=== PATIENT | male | born 1940 | race Caucasian/White ===

== ENCOUNTER 2019-09-15 13:06 | Inpatient (IN) | payer MEDICARE, MEDICAID ==
[2019-09-15 22:23] VITALS: BP 165/64
[2019-09-15] MEDS ORDERED: Maalox 30 mL Cup PO PRN (22:28)
[2019-09-15] MEDS ORDERED: Magnesium Hydroxide (MOM) 30 mL UDC PO PRN (22:28)
[2019-09-16] MEDS ORDERED: Acetaminophen 500 MG TAB PO PRN (00:19)
[2019-09-16] MEDS ORDERED: Fleet Enema 135 mL RC PRN (00:26)
--- NOTE | 2019-09-16 09:02 | Psychiatric Evaluation ---
DATE OF SERVICE: 09/15/2019 PSYCHIATRIC INITIAL EVALUATION AND MENTAL STATUS EXAM AGE: 78. SEX: Male. PHYSICIAN: Dr. Cool. CHIEF COMPLAINT: Agitation and verbal and aggressive behavior. HISTORY OF PRESENT ILLNESS: The patient is a 78-year-old male, who was admitted to the hospital from [facility] because of verbal and physical aggression toward the staff. According to the admission report, patient has been aggressive with the staff in the facility and was not able to follow any directions. Also, patient was throwing stuff towards other residents and staff. Chart reviewed and patient interviewed and discussed patient's condition with the staff. The patient currently seems to be unable to answer most of the questions currently. According to admission report and from the , patient at certain time was homeless and he was having difficulty with having living situation that is appropriate, but lately has been in [facility]. Also, according to patient's , patient has been aggressive. He has a diagnosis of psychosis and patient was throwing objects at staff and others in the facility. PAST PSYCHIATRIC HISTORY: History of psychosis. The patient is currently taking Aricept as well as Seroquel 25 mg at bedtime. PAST MEDICAL HISTORY: The patient has history of diabetes mellitus type 2, hypertension, benign prostatic hypertrophy, glaucoma, and hyperlipidemia. SOCIAL HISTORY: The patient is , but from and living in a residential "[facility]." He denies alcohol or drug use. The patient also said that he has adult children, but was not able to tell me how much. ALLERGIES: No known allergies. MENTAL STATUS EXAMINATION: The patient appears his stated age. Slightly sedated. Tried to answer questions, but at the same time because patient seems to be preoccupied and slightly sedated, he was not able to answer any of my questions correctly. The patient seems to be preoccupied and responding. He denies auditory or visual hallucinations, but seems to be paranoid. He denies suicide or homicide. The patient is alert and oriented to situation, but not to place or person. Impaired immediate, recent memory, but he was able to tell me his date. Poor insight and judgment. ASSESSMENT: PRIMARY DIAGNOSIS: Unspecified psychosis. Rule out schizophrenic disorder. SECONDARY DIAGNOSIS: Dementia, moderate, with psychotic features and behavioral disturbances. MEDICAL DIAGNOSES: 1. Hyperlipidemia. 2. Benign prostatic hypertrophy. 3. Hypertension. 4. Type 2 diabetes mellitus. TREATMENT PLAN: We will currently continue Aricept and we will continue Seroquel and we will adjust the dose. Also, we will work on behavioral modification and we will try also to get more information regarding patient's condition. ESTIMATED LENGTH OF STAY: 5-7 days. PATIENT'S STRENGTHS AND WEAKNESSES: The patient's strength is not clear at this time. Weaknesses is his poor impulse control and his irritability and agitation. AFTER DISCHARGE PLAN: The patient will return to [facility] and with plans for outpatient treatment there. CRITERIA FOR DISCHARGE: Better impulse control. Also, stabilizing psychotropic medications. JOB# [id number]
[2019-09-16] MEDS: Aspirin 81mg Chewable Tab PO SCH (09:55)
--- NOTE | 2019-09-16 12:57 | History and Physical ---
History of Present Illness - HPI Chief Complaint: Patient was brought to [facility] for evaluation due to verbal and physical aggression. HPI: Patient was brought to [facility] from [facility] for evaluation due to verbal and physical aggression. Patient has history of Psychosis, Dementia, Hypertension, BPH, Diabetes, Hyperlipidemia and Glaucoma. Patient had an ER assessment and a complete workup was done. Patient had a Psych evaluation and was diagnosed with Psychosis, Rule out Schizophrenic disorder, Dementia, Hyperlipidemia, BPH, Diabetes and Hypertension. I will follow, treat and monitor patient. Patient will continue current treatment plan as ordered. Vital Signs: Last Vital Signs Temp 98.0 F 09/16/19 06:54 Pulse 56 09/16/19 09:50 Resp 19 09/16/19 06:54 BP 113/52 09/16/19 09:50 Pulse Ox 98 09/16/19 06:54 Past Medical History Cardiovascular: Report: HTN Pulmonary: Report: No Pertinent Hx [employer]ICE: Report: Dementia GI: Report: No Pertinent Hx Psych: Report: Psychosis Musculoskeletal: Report: No Pertinent Hx Rheumatologic: Report: No pertinent Hx Infectious Disease: Report: No Pertinent Hx Renal/: Report: No Pertinent Hx Endocrine: Report: Diabetes Dermatology: Report: No Pertinent Hx Family Medical History - Family Member Mother History Unknown: Yes Social History Smoke: No Alcohol: None Drugs: None Lives: [facility] Domestic Violence: Negative Health Maintenance Health Maintenance: Other (Please see chart.) - Medications Home Medications: Home Medication Medication Instructions Recorded Type Acetaminophen [Tylenol Extra 1,000 mg PO Q8H PRN 09/15/19 History Strength] Aspirin [Aspirin Chewable] 81 mg PO DAILY 09/15/19 History Atorvastatin Calcium [Lipitor] 20 mg PO HS 09/15/19 History Bisacodyl [Dulcolax 10 Mg Supp] 10 mg RC DAILY PRN 09/15/19 History Brimonidine 0.2% Ophth Soln 1 drop EACH EYE BID 09/15/19 History [Alphagan 0.2% Ophth Soln] Cholecalciferol (Vit D3) [Vitamin 5,000 iu PO DAILY 09/15/19 History D3] Donepezil HCl [Aricept] 10 mg PO HS 09/15/19 History Dorzolamide HCl/Timolol Maleat 1 drop OP BID 09/15/19 History [Cosopt Eye Drops] Doxazosin Mesylate 2 mg PO DAILY 09/15/19 History Fleet Enema 133 ml RC PRN 09/15/19 History Fleet Enema 133 ml RC PRN 09/15/19 History Glimepiride 1 mg PO DAILY 09/15/19 History Lisinopril [Zestril] 5 mg PO DAILY 09/15/19 History Memantine HCl [Namenda Xr] 28 mg PO HS 09/15/19 History Metformin HCl 1,000 mg PO BID 09/15/19 History Pioglitazone HCl [Actos] 15 mg PO DAILY 09/15/19 History Tamsulosin HCl [Flomax] 0.4 mg PO HS 09/15/19 History Acetaminophen [Tylenol] 650 mg PO Q4H PRN 09/16/19 History Other Medications: Please see Medication reconciliation sheet. - Allergies Allergies/Adverse Reactions: Allergies Allergy/AdvReac Type Severity Reaction Status Date / Time No Known Allergies Allergy Verified 09/15/19 22:23 Review of Systems - Review of Systems Review of Systems: Patient was admitted due to Physical and verbal aggression, needs close monitoring. Constitutional: Report: No Significant Eyes: Report: No Significant ENT: Report: No Significant Respiratory: Report: No Significant Cardiovascular: Report: No Significant Gastrointestinal: Report: No Significant Genitourinary: Report: No Significant Musculoskeletal: Report: No Significant Skin: Report: No Significant Neurological: Report: Weakness, Confusion Physical Exam - Physical Exam HEENT: Report: Ears Nose Throat within normal limits Neck: Report: Within normal limits Cardiovascular Systems: Report: +s1/s2 noted, Regular, Rate and Rhythm Respiratory: Report: Breath Sounds are within normal limits Abdomen: Report: Non-tender to palpation Back: Report: Inspection of back is within normal limits. Extremities: Report: Non-tender to palpation. Skin: Report: Color of skin is within normal limits Neuro/Psych: Report: Other (Patient is very aggitated and aggressive.) - Lab Results All Lab Results last 24 hours: Please see labs. - Assessment Assessment: Psychosis. Rule out Schizophrenic disorder. Dementia. Hyperlipidemia. BPH. Diabetes. Hypertension. - Plan Plan: Continuation of care. Monitor Labs. Continue present meds as directed. Monitor vitals continue B/P meds as directed. Accu-check daily, Continue DM meds as directed. Monitor Diet/Nutritional support. Pain Management. Psych management as per Psych. Safety precaution. Supportive care. Fall precaution, frequent nursing rounds, and as needed restraints to prevent fall. Continue collaborating with consulting specialists, case management and nursing team. Will Monitor patient and continue current treatment plan as ordered.
[2019-09-16] MEDS: Atorvastatin Calcium 10 MG TAB PO SCH (20:47)
[2019-09-16] MEDS ORDERED: MEMANTINE HCL 28 MG PO SCH (21:00)
[2019-09-17] MEDS: Aspirin 81mg Chewable Tab PO SCH (09:34)
--- NOTE | 2019-09-17 12:00 | Internal Medicine Prog Note ---
Internal Medicine Subjective - Subjective Service Date: 09/17/19 Patient seen and examined:: with staff, chart reviewed Patient is:: awake, agitated, confused Patient Complaints of:: other (Hx of diabetes.) Per staff patient has:: no adverse event, no episodes of fall Internal Medicine Objective - Physical Exam Vitals and I&O: Vital Signs Temp 98.4 F 09/17/19 06:05 Pulse 80 09/17/19 09:35 Resp 20 09/17/19 06:05 BP 118/62 09/17/19 09:35 Pulse Ox 99 09/17/19 06:05 Intake & Output 09/16/19 09/17/19 09/17/19 18:59 06:59 18:59 Intake Total 960 240 Balance 960 240 Intake: Oral 960 240 Other: # Voids 4 2 # Bowel Movements 0 1 Active Medications: Current Medications Acetaminophen (Tylenol) 650 mg PO Q4H PRN PRN Reason: Pain (Mild 1-3) Stop: 11/14/19 22:27 Acetaminophen (Tylenol) 650 mg PO Q4H PRN PRN Reason: Temperature above 101 Stop: 11/15/19 00:18 Acetaminophen (Tylenol Extra Strength) 1,000 mg PO Q8H PRN PRN Reason: MODERATE PAIN (4-6) Stop: 11/15/19 00:18 Al Hydrox/Mg Hydrox/Simethicone (Maalox) 30 ml PO Q4HR PRN PRN Reason: GI DISTRESS Stop: 11/14/19 22:27 Aspirin (Aspirin Chewable) 81 mg PO DAILY [facility] Stop: 11/15/19 08:59 Last Admin: 09/17/19 09:34 Dose: 81 mg Atorvastatin Calcium (Lipitor) 20 mg PO HS [facility] Stop: 11/15/19 20:59 Last Admin: 09/16/19 20:47 Dose: Not Given Bisacodyl (Dulcolax 10 Mg Supp) 10 mg RC DAILY PRN PRN Reason: no bm for 3 days if mom ineffe Stop: 11/15/19 00:18 Brimonidine Tartrate (Alphagan 0.2% Ophth Soln) 1 drop EACH EYE BID [facility] Stop: 11/15/19 08:59 Last Admin: 09/17/19 09:50 Dose: Not Given Cholecalciferol (Vitamin D3) 5,000 iu PO DAILY [facility] Stop: 11/15/19 08:59 Last Admin: 09/17/19 09:34 Dose: 5,000 iu Donepezil HCl (Aricept) 10 mg PO HS [facility] Stop: 11/15/19 20:59 Last Admin: 09/16/19 20:47 Dose: Not Given Dorzolamide/Timolol (Cosopt Ophth Soln) 1 drop EACH EYE BID [facility] Stop: 11/15/19 08:59 Last Admin: 09/17/19 09:50 Dose: Not Given Doxazosin Mesylate (Cardura) 2 mg PO DAILY [facility] Stop: 11/15/19 08:59 Last Admin: 09/17/19 09:34 Dose: 2 mg Glimepiride (Amaryl) 1 mg PO DAILY [facility] Stop: 11/15/19 08:59 Last Admin: 09/17/19 09:36 Dose: 1 mg Lisinopril (Zestril) 5 mg PO DAILY [facility] Stop: 11/15/19 08:59 Last Admin: 09/17/19 09:35 Dose: 5 mg Lorazepam (Ativan) 0.5 mg PO Q4HR PRN; Protocol PRN Reason: Anxiety Stop: 10/15/19 22:27 Magnesium Hydroxide (Milk Of Magnesia) 30 ml PO HS PRN PRN Reason: Constipation Memantine (Namenda) 5 mg PO BID [facility] Stop: 11/15/19 16:59 Last Admin: 09/17/19 09:36 Dose: 5 mg Metformin HCl (Glucophage) 1,000 mg PO BID [facility] Stop: 11/15/19 08:59 Last Admin: 09/17/19 09:34 Dose: 1,000 mg Pioglitazone HCl (Actos) 15 mg PO DAILY [facility] Stop: 11/15/19 08:59 Last Admin: 09/17/19 09:35 Dose: 15 mg Quetiapine Fumarate (Seroquel) 25 mg PO BID [facility]; Protocol Stop: 11/15/19 08:59 Last Admin: 09/17/19 09:35 Dose: 25 mg Sodium Phosphate (Fleet Enema) 133 ml RC PRN PRN PRN Reason: no bm 3 days dulcolax ineffect Stop: 11/15/19 00:25 Tamsulosin HCl (Flomax) 0.4 mg PO HS [facility] Stop: 11/15/19 20:59 Last Admin: 09/16/19 20:47 Dose: Not Given Zolpidem Tartrate (Ambien) 5 mg PO HS PRN PRN Reason: Insomnia Stop: 11/14/19 22:27 Physical Exam: Patent needs to be monitored closely, patient is easily agitated and very irritable. General: demented HEENT: NC/AT, PERRLA Neck: Supple, No JVD Lungs: CTAB Cardiovascular: RRR, Normal S1, Normal S2 Abdomen: soft, non-tender Extremities: clear Neurological: disorganized Internal Medicine Assmt/Plan - Assessment Assessment: Psychosis. Rule out Schizophrenic disorder. Dementia. Hyperlipidemia. BPH. Diabetes. Hypertension. - Plan Plan: Continuation of care. Monitor Labs. Continue present meds as directed. Monitor vitals continue B/P meds as directed. Accu-check daily, Continue DM meds as directed. Monitor Diet/Nutritional support. Pain Management. Psych management as per Psych. Safety precaution. Supportive care. Fall precaution, frequent nursing rounds, and as needed restraints to prevent fall. Continue collaborating with consulting specialists, case management and nursing team. Will Monitor patient and continue current treatment plan as ordered. Nutritional Asmnt/Malnutr-PDOC - Dietary Evaluation Malnutrition Findings (Please click <Entered> for more info): please see orders.
[2019-09-17] MEDS: Atorvastatin Calcium 10 MG TAB PO SCH (20:16)
--- NOTE | 2019-09-17 21:06 | Progress Notes ---
DATE: SUBJECTIVE: Chart was reviewed and the patient interviewed. Also discussed the patient's condition with the staff and reviewed records and labs. The patient is still easily agitated and is still in irritable and angry mood. The patient also wants to stay by himself most of the time. He also is still talking to himself and easily irritable and easily agitated. Also, the patient is uncooperative and refused to take his medications. ASSESSMENT: The patient is still agitated and is still psychotic. TREATMENT PLAN: Continue to monitor his behavior closely. Also, continue to work on his compliance with taking his medications. Also, working on his ineffective coping and poor impulse control. JOB# [id number]
[2019-09-18] MEDS: Aspirin 81mg Chewable Tab PO SCH (09:09)
--- NOTE | 2019-09-18 12:45 | Progress Notes ---
DATE: 09/18/2019 SUBJECTIVE: The patient was seen in his room. The patient appears to be withdrawn, poor impulse control, easily gets agitated and frustrated, did need some redirection. Otherwise, the patient appears to be in no acute distress. OBJECTIVE: VITAL SIGNS: Temperature 97, heart rate 61, blood pressure 115/62, respirations 20, and 99% on room air. HEENT: Head is atraumatic and normocephalic. Eyes: Bilateral conjunctivae are clear. Bilateral pupils equal, round, reactive. NECK: Supple. No JVD. CARDIOVASCULAR: S1 and S2, without murmur. PULMONARY: Clear to auscultation. GASTROINTESTINAL: Soft and nontender without guarding. Positive bowel sounds. MUSCULOSKELETAL: No clubbing. No cyanosis noted. ASSESSMENT: 1. Psychosis. 2. Hyperlipidemia. 3. Hypertension. 4. Benign prostatic hypertrophy. 5. Diabetes. PLAN: We will continue to keep the patient to inpatient Psychiatric Unit. We will follow up with a psychiatrist to monitor the patient's condition and behavior. We will continue to monitor the patient's condition and behavior. Treatment plans were discussed with the patient's nurse. Treatment plans were discussed with Dr. Márquez. JOB# [id number]
--- NOTE | 2019-09-18 18:22 | Progress Notes ---
DATE: 09/18/2019 SUBJECTIVE: The patient was seen and evaluated. The patient's chart reviewed. Covering for Dr. Cool. IDENTIFYING DATA: A 78-year-old male brought in [facility]. Physical and verbal aggression towards staff. Reconciliation reviewed, Aricept 10, Namenda, and Seroquel. Today on [id number] evaluation, easily irritable upon approach, anxious, minimally interactive, has been isolating, withdrawn, at times talking to himself upon the approach, at times refusing medications and does not know why he is here. ASSESSMENT AND PLAN: Continue with significant coping skills, poor impulse control. Alert and responding. We will continue with the recent augmentation of Seroquel. JOB# [id number]
[2019-09-18] MEDS: Atorvastatin Calcium 10 MG TAB PO SCH (20:58)
[2019-09-19] MEDS: Aspirin 81mg Chewable Tab PO SCH (09:09)
--- NOTE | 2019-09-19 09:45 | Progress Notes ---
DATE: 09/19/[address] Cool. SUBJECTIVE: Today on [id number] evaluation, distraught, anxious in his room, in redirection, at times refusing medications. MENTAL STATUS EXAMINATION: Isolative, withdrawn, disengaged, poor insight. ASSESSMENT AND PLAN: Major depressive disorder with poor coping skills and impulsive. We will continue monitoring and evaluating as medication continue to reach steady state. [facility]# [id number]
--- NOTE | 2019-09-19 13:49 | Internal Medicine Prog Note ---
Internal Medicine Subjective - Subjective Patient is:: awake, verbal, agitated, confused Patient Complaints of:: other (Hx of diabetes.) Per staff patient has:: no adverse event, no episodes of fall Internal Medicine Objective - Physical Exam Vitals and I&O: Vital Signs Temp 98.4 F 09/19/19 06:03 Pulse 57 09/19/19 09:09 Resp 19 09/19/19 08:00 BP 143/68 09/19/19 09:09 Pulse Ox 97 09/19/19 06:03 Intake & Output 09/18/19 09/19/19 09/19/19 17:59 06:59 18:59 Intake Total Balance Intake: Oral Other: # Voids # Bowel Movements Active Medications: Current Medications Acetaminophen (Tylenol) 650 mg PO Q4H PRN PRN Reason: Pain (Mild 1-3) Stop: 11/14/19 22:27 Acetaminophen (Tylenol) 650 mg PO Q4H PRN PRN Reason: Temperature above 101 Stop: 11/15/19 00:18 Acetaminophen (Tylenol Extra Strength) 1,000 mg PO Q8H PRN PRN Reason: MODERATE PAIN (4-6) Stop: 11/15/19 00:18 Al Hydrox/Mg Hydrox/Simethicone (Maalox) 30 ml PO Q4HR PRN PRN Reason: GI DISTRESS Stop: 11/14/19 22:27 Aspirin (Aspirin Chewable) 81 mg PO DAILY [facility] Stop: 11/15/19 08:59 Last Admin: 09/19/19 09:09 Dose: 81 mg Atorvastatin Calcium (Lipitor) 20 mg PO HS [facility] Stop: 11/15/19 20:59 Last Admin: 09/18/19 20:58 Dose: Not Given Bisacodyl (Dulcolax 10 Mg Supp) 10 mg RC DAILY PRN PRN Reason: no bm for 3 days if mom ineffe Stop: 11/15/19 00:18 Brimonidine Tartrate (Alphagan 0.2% Oph Soln) 1 drop EACH EYE BID [facility] Stop: 11/15/19 08:59 Last Admin: 09/19/19 09:08 Dose: 1 drop Cholecalciferol (Vitamin D3) 5,000 iu PO DAILY [facility] Stop: 11/15/19 08:59 Last Admin: 09/19/19 09:08 Dose: 5,000 iu Donepezil HCl (Aricept) 10 mg PO HS [facility] Stop: 11/15/19 20:59 Last Admin: 09/18/19 20:58 Dose: Not Given Dorzolamide/Timolol (Cosopt Ophth Soln) 1 drop EACH EYE BID [facility] Stop: 11/15/19 08:59 Last Admin: 09/19/19 09:08 Dose: 1 drop Doxazosin Mesylate (Cardura) 2 mg PO DAILY [facility] Stop: 11/15/19 08:59 Last Admin: 09/19/19 09:08 Dose: 2 mg Glimepiride (Amaryl) 1 mg PO DAILY [facility] Stop: 11/15/19 08:59 Last Admin: 09/19/19 09:10 Dose: 1 mg Lisinopril (Zestril) 5 mg PO DAILY [facility] Stop: 11/15/19 08:59 Last Admin: 09/19/19 09:09 Dose: 5 mg Lorazepam (Ativan) 0.5 mg PO Q4HR PRN; Protocol PRN Reason: Anxiety Stop: 10/15/19 22:27 Magnesium Hydroxide (Milk Of Magnesia) 30 ml PO HS PRN PRN Reason: Constipation Memantine (Namenda) 5 mg PO BID [facility] Stop: 11/15/19 16:59 Last Admin: 09/19/19 09:43 Dose: 5 mg Metformin HCl (Glucophage) 1,000 mg PO BID [facility] Stop: 11/15/19 08:59 Last Admin: 09/19/19 09:09 Dose: 1,000 mg Pioglitazone HCl (Actos) 15 mg PO DAILY [facility] Stop: 11/15/19 08:59 Last Admin: 09/19/19 09:08 Dose: 15 mg Quetiapine Fumarate (Seroquel) 25 mg PO BID [facility]; Protocol Stop: 11/15/19 08:59 Last Admin: 09/19/19 09:09 Dose: 25 mg Sodium Phosphate (Fleet Enema) 133 ml RC PRN PRN PRN Reason: no bm 3 days dulcolax ineffect Stop: 11/15/19 00:25 Tamsulosin HCl (Flomax) 0.4 mg PO HS [facility] Stop: 11/15/19 20:59 Last Admin: 09/18/19 20:58 Dose: Not Given Zolpidem Tartrate (Ambien) 5 mg PO HS PRN PRN Reason: Insomnia Stop: 11/14/19 22:27 General: demented, NAD, other (does not answer questions appropriately) HEENT: NC/AT, PERRLA Neck: Supple, No JVD Lungs: CTAB Cardiovascular: RRR, Normal S1, Normal S2 Abdomen: soft, non-tender Extremities: clear Neurological: disorganized Internal Medicine Assmt/Plan - Assessment Assessment: Psychosis Hyperlipidemia HTN BPH DM - Plan Plan: Continue current managements Monitor VS Monitor Labs Psych management per Psych Pain managment as needed. Monitor nutritional needs. Fall Precaution Continue collaboration with interdisciplinary team. Nutritional Asmnt/Malnutr-PDOC - Dietary Evaluation Malnutrition Findings (Please click <Entered> for more info): Nutritional Asmnt/Malnutrition Start: 09/18/19 10: 39 Text: Status: Complete Freq: Protocol: Document 09/18/19 10:39 MMPETRA (Rec: 09/18/19 10:47 MMULCAN SALINAS- [email or web address]) Nutritional Asmnt/Malnutrition Patient General Information Nutritional Screening Moderate Risk Diagnosis Psychosis Pertinent Medical Hx/Surgical Hx Psychosis, dementia, HTN, BPH, diabetes, hyperlipidemia, glaucoma. Subjective Information Patient was admitted from [facility] due to verbal and physical aggression . Tolerating current diet order with adequate intake. Current Diet Order/ Nutrition Support mechanical soft, 60gm CCHO, no added sodium Patient / S.O Not Indicated Pertinent Medications Maalox, Lipitor, Dulcolax, Vitamin D, MOM, Metformin, Fleet enema Nutritional Hx/Data Height 5 ft 2 in Height (Calculated Centimeters) 157.5 Current Weight (lbs) 176 lb Weight (Calculated Kilograms) 79.8 Weight (Calculated Grams) 51277.3 Mathews Body Weight 118 % Mathews Body Weight 149 Body Mass Index (BMI) 32.1 Recent Weight Change No Weight Status Obese GI Symptoms GI Symptoms None Last BM 3/6 x 2 Difficult in: None Food Allergies No Cultural/Ethnic/Oriental Orthodox Belief none indicated Usual diet at home unknown Skin Integrity/Comment: Dillon 18, Dryness Current %PO Good (75-100%) Estimated Nutritional Goals BEE in Kcals: Adj wt of IBW Calories/Kcals/Kg 60.2kg ADj BW 27-32 kcal/kg Kcals Calculated ~3726-0969 kcal/day Protein: Adj wt of IBW Protein g/k-1.2 gm/kg Protein Calculated ~60-70gm/day Fluid: ml ~4109-8517 ml/day (1 ml/kcal) Nutritional Problem No current Nutrition Prob Problem No nutrition diagnosis at this time Intervention/Recommendation Comments 1. Continue current diet as tolerated by patient. Expected Outcomes/Goals Expected Outcomes/Goals Adequate nutrition to meet >75 % estimated needs, improved labs, skin remains intact, weight maintenance or trend toward ideal body weight. F/U LR 09/24-
[2019-09-19] MEDS: Atorvastatin Calcium 10 MG TAB PO SCH (21:25)
[2019-09-20] MEDS: Aspirin 81mg Chewable Tab PO SCH (09:22)
--- NOTE | 2019-09-20 17:14 | Internal Medicine Prog Note ---
Internal Medicine Subjective - Subjective Service Date: 09/20/19 Patient is:: awake, verbal, agitated, confused Patient Complaints of:: other (Hx of diabetes.) Per staff patient has:: no adverse event, no episodes of fall Internal Medicine Objective - Physical Exam Vitals and I&O: Vital Signs Temp 99.6 F 09/20/19 14:00 Pulse 63 09/20/19 14:00 Resp 20 09/20/19 14:00 BP 116/63 09/20/19 14:00 Pulse Ox 97 09/20/19 14:00 Intake & Output 09/19/19 09/20/19 09/20/19 18:59 06:59 18:59 Intake Total 900 120 Balance 900 120 Intake: Oral 900 120 Other: # Voids 3 # Bowel Movements 0 Active Medications: Current Medications Acetaminophen (Tylenol) 650 mg PO Q4H PRN PRN Reason: Pain (Mild 1-3) Stop: 11/14/19 22:27 Acetaminophen (Tylenol) 650 mg PO Q4H PRN PRN Reason: Temperature above 101 Stop: 11/15/19 00:18 Acetaminophen (Tylenol Extra Strength) 1,000 mg PO Q8H PRN PRN Reason: MODERATE PAIN (4-6) Stop: 11/15/19 00:18 Al Hydrox/Mg Hydrox/Simethicone (Maalox) 30 ml PO Q4HR PRN PRN Reason: GI DISTRESS Stop: 11/14/19 22:27 Aspirin (Aspirin Chewable) 81 mg PO DAILY [facility] Stop: 11/15/19 08:59 Last Admin: 09/20/19 09:22 Dose: Not Given Atorvastatin Calcium (Lipitor) 20 mg PO HS [facility] Stop: 11/15/19 20:59 Last Admin: 09/19/19 21:25 Dose: 20 mg Bisacodyl (Dulcolax 10 Mg Supp) 10 mg RC DAILY PRN PRN Reason: no bm for 3 days if mom ineffe Stop: 11/15/19 00:18 Brimonidine Tartrate (Alphagan 0.2% Ophth Soln) 1 drop EACH EYE BID [facility] Stop: 11/15/19 08:59 Last Admin: 09/20/19 09:22 Dose: Not Given Cholecalciferol (Vitamin D3) 5,000 iu PO DAILY [facility] Stop: 11/15/19 08:59 Last Admin: 09/20/19 09:22 Dose: Not Given Donepezil HCl (Aricept) 10 mg PO HS [facility] Stop: 11/15/19 20:59 Last Admin: 09/19/19 21:25 Dose: 10 mg Dorzolamide/Timolol (Cosopt Ophth Soln) 1 drop EACH EYE BID [facility] Stop: 11/15/19 08:59 Last Admin: 09/20/19 09:22 Dose: Not Given Doxazosin Mesylate (Cardura) 2 mg PO DAILY [facility] Stop: 11/15/19 08:59 Last Admin: 09/20/19 09:23 Dose: Not Given Glimepiride (Amaryl) 1 mg PO DAILY [facility] Stop: 11/15/19 08:59 Last Admin: 09/20/19 09:23 Dose: Not Given Lisinopril (Zestril) 5 mg PO DAILY [facility] Stop: 11/15/19 08:59 Last Admin: 09/20/19 09:23 Dose: Not Given Lorazepam (Ativan) 0.5 mg PO Q4HR PRN; Protocol PRN Reason: Anxiety Stop: 10/15/19 22:27 Magnesium Hydroxide (Milk Of Magnesia) 30 ml PO HS PRN PRN Reason: Constipation Memantine (Namenda) 5 mg PO BID [facility] Stop: 11/15/19 16:59 Last Admin: 09/20/19 09:23 Dose: Not Given Metformin HCl (Glucophage) 1,000 mg PO BID [facility] Stop: 11/15/19 08:59 Last Admin: 09/20/19 09:23 Dose: Not Given Pioglitazone HCl (Actos) 15 mg PO DAILY [facility] Stop: 11/15/19 08:59 Last Admin: 09/20/19 09:23 Dose: Not Given Quetiapine Fumarate (Seroquel) 25 mg PO BID [facility]; Protocol Stop: 11/15/19 08:59 Last Admin: 09/20/19 09:23 Dose: Not Given Sodium Phosphate (Fleet Enema) 133 ml RC PRN PRN PRN Reason: no bm 3 days dulcolax ineffect Stop: 11/15/19 00:25 Tamsulosin HCl (Flomax) 0.4 mg PO HS [facility] Stop: 11/15/19 20:59 Last Admin: 03/08/20 21:25 Dose: 0.4 mg Zolpidem Tartrate (Ambien) 5 mg PO HS PRN PRN Reason: Insomnia Stop: 11/14/19 22:27 General: demented, NAD, other (does not answer questions appropriately) HEENT: NC/AT, PERRLA Neck: Supple, No JVD Lungs: CTAB Cardiovascular: RRR, Normal S1, Normal S2 Abdomen: soft, non-tender Extremities: clear Neurological: disorganized Nutritional Asmnt/Malnutr-PDOC - Dietary Evaluation Malnutrition Findings (Please click <Entered> for more info): Nutritional Asmnt/Malnutrition Start: 09/18/19 10: 39 Text: Status: Complete Freq: Protocol: Document 09/18/19 10:39 VALARIE (Rec: 09/18/19 10:47 MMPETRA NIÑO- FNS1) Nutritional Asmnt/Malnutrition Patient General Information Nutritional Screening Moderate Risk Diagnosis Psychosis Pertinent Medical Hx/Surgical Hx Psychosis, dementia, HTN, BPH, diabetes, hyperlipidemia, glaucoma. Subjective Information Patient was admitted from [facility] due to verbal and physical aggression . Tolerating current diet order with adequate intake. Current Diet Order/ Nutrition Support mechanical soft, 60gm CCHO, no added sodium Patient / S.O Not Indicated Pertinent Medications Maalox, Lipitor, Dulcolax, Vitamin D, MOM, Metformin, Fleet enema Nutritional Hx/Data Height 5 ft 2 in Height (Calculated Centimeters) 157.5 Current Weight (lbs) 176 lb Weight (Calculated Kilograms) 79.8 Weight (Calculated Grams) 07367.3 [place] Body Weight 118 % [place] Body Weight 149 Body Mass Index (BMI) 32.1 Recent Weight Change No Weight Status Obese GI Symptoms GI Symptoms None Last BM 3/6 x 2 Difficult in: None Food Allergies No Cultural/Ethnic/Jainism Belief none indicated Usual diet at home unknown Skin Integrity/Comment: Dillon 18, Dryness Current %PO Good (75-100%) Estimated Nutritional Goals BEE in Kcals: Adj wt of IBW Calories/Kcals/Kg 60.2kg ADj BW 27-32 kcal/kg Kcals Calculated ~9481-8769 kcal/day Protein: Adj wt of IBW Protein g/k-1.2 gm/kg Protein Calculated ~60-70gm/day Fluid: ml ~7701-2048 ml/day (1 ml/kcal) Nutritional Problem No current Nutrition Prob Problem No nutrition diagnosis at this time Intervention/Recommendation Comments 1. Continue current diet as tolerated by patient. Expected Outcomes/Goals Expected Outcomes/Goals Adequate nutrition to meet >75 % estimated needs, improved labs, skin remains intact, weight maintenance or trend toward ideal body weight. F/U LR 09/24-
--- NOTE | 2019-09-20 19:17 | Progress Notes ---
DATE: 09/20/2019 SUBJECTIVE: Chart was reviewed and the patient interviewed. Also discussed the patient's condition with the staff and reviewed records and labs. The patient is still isolative and is still withdrawn. The patient also is still pleasantly confused, but at times gets very agitated. The patient stays by himself in his room and when I asked him about reasons for his isolation, his answer was "my does everything." The patient still wants to be left alone and when staff tries to help him and encourages him to socialize, he gets more aggressive and more agitated. Otherwise, the patient is compliant with taking his medications with no side effects. During interview, the patient is lying in bed and seems to be preoccupied and seems to be responding to stimuli. Also, was getting more agitated when I was asking him more questions. The patient also was actively responding. ASSESSMENT: The patient is still psychotic and is still agitated. TREATMENT PLAN: Continue to monitor his behavior and his condition closely. Also, continue to work on his poor impulse control as well as his isolation and anger issues. JOB# [id number]
[2019-09-20] MEDS: Atorvastatin Calcium 10 MG TAB PO SCH (20:58)
[2019-09-21] MEDS: Aspirin 81mg Chewable Tab PO SCH (08:53)
--- NOTE | 2019-09-21 16:06 | Internal Medicine Prog Note ---
Internal Medicine Subjective - Subjective Service Date: 09/21/19 Patient is:: awake, verbal, agitated, confused Patient Complaints of:: other (Hx of diabetes.) Per staff patient has:: no adverse event, no episodes of fall Internal Medicine Objective - Physical Exam Vitals and I&O: Vital Signs Temp 98.5 F 09/21/19 14:00 Pulse 68 09/21/19 14:00 Resp 20 09/21/19 14:00 BP 135/82 09/21/19 14:00 Pulse Ox 97 09/21/19 14:00 Intake & Output 09/20/19 09/21/19 09/21/19 18:59 06:59 18:59 Intake Total 960 360 Balance 960 360 Intake: Oral 960 360 Other: # Voids 2 2 # Bowel Movements 0 0 Active Medications: Current Medications Acetaminophen (Tylenol) 650 mg PO Q4H PRN PRN Reason: Pain (Mild 1-3) Stop: 11/14/19 22:27 Acetaminophen (Tylenol) 650 mg PO Q4H PRN PRN Reason: Temperature above 101 Stop: 11/15/19 00:18 Acetaminophen (Tylenol Extra Strength) 1,000 mg PO Q8H PRN PRN Reason: MODERATE PAIN (4-6) Stop: 11/15/19 00:18 Al Hydrox/Mg Hydrox/Simethicone (Maalox) 30 ml PO Q4HR PRN PRN Reason: GI DISTRESS Stop: 11/14/19 22:27 Aspirin (Aspirin Chewable) 81 mg PO DAILY [facility] Stop: 11/15/19 08:59 Last Admin: 09/21/19 08:53 Dose: Not Given Atorvastatin Calcium (Lipitor) 20 mg PO HS [facility] Stop: 11/15/19 20:59 Last Admin: 09/20/19 20:58 Dose: Not Given Bisacodyl (Dulcolax 10 Mg Supp) 10 mg RC DAILY PRN PRN Reason: no bm for 3 days if mom ineffe Stop: 11/15/19 00:18 Brimonidine Tartrate (Alphagan 0.2% Oph Soln) 1 drop EACH EYE BID [facility] Stop: 11/15/19 08:59 Last Admin: 09/21/19 08:59 Dose: Not Given Cholecalciferol (Vitamin D3) 5,000 iu PO DAILY [facility] Stop: 11/15/19 08:59 Last Admin: 09/21/19 08:53 Dose: Not Given Donepezil HCl (Aricept) 10 mg PO HS [facility] Stop: 11/15/19 20:59 Last Admin: 09/20/19 20:58 Dose: Not Given Dorzolamide/Timolol (Cosopt Ophth Soln) 1 drop EACH EYE BID [facility] Stop: 11/15/19 08:59 Last Admin: 09/21/19 08:59 Dose: Not Given Doxazosin Mesylate (Cardura) 2 mg PO DAILY [facility] Stop: 11/15/19 08:59 Last Admin: 09/21/19 08:54 Dose: Not Given Glimepiride (Amaryl) 1 mg PO DAILY [facility] Stop: 11/15/19 08:59 Last Admin: 09/21/19 08:53 Dose: Not Given Lisinopril (Zestril) 5 mg PO DAILY [facility] Stop: 11/15/19 08:59 Last Admin: 09/21/19 08:55 Dose: Not Given Lorazepam (Ativan) 0.5 mg PO Q4HR PRN; Protocol PRN Reason: Anxiety Stop: 10/15/19 22:27 Magnesium Hydroxide (Milk Of Magnesia) 30 ml PO HS PRN PRN Reason: Constipation Memantine (Namenda) 5 mg PO BID [facility] Stop: 11/15/19 16:59 Last Admin: 09/21/19 08:54 Dose: Not Given Metformin HCl (Glucophage) 1,000 mg PO BID [facility] Stop: 11/15/19 08:59 Last Admin: 09/21/19 08:54 Dose: Not Given Pioglitazone HCl (Actos) 15 mg PO DAILY [facility] Stop: 11/15/19 08:59 Last Admin: 09/21/19 08:54 Dose: Not Given Risperidone (Risperdal) 1 mg PO BID [facility]; Protocol Stop: 11/20/19 16:59 Sodium Phosphate (Fleet Enema) 133 ml RC PRN PRN PRN Reason: no bm 3 days dulcolax ineffect Stop: 11/15/19 00:25 Tamsulosin HCl (Flomax) 0.4 mg PO HS [facility] Stop: 11/15/19 20:59 Last Admin: 09/20/19 20:58 Dose: Not Given Zolpidem Tartrate (Ambien) 5 mg PO HS PRN PRN Reason: Insomnia Stop: 11/14/19 22:27 General: demented, NAD, other (does not answer questions appropriately) HEENT: NC/AT, PERRLA Neck: Supple, No JVD Lungs: CTAB Cardiovascular: RRR, Normal S1, Normal S2 Abdomen: soft, non-tender Extremities: clear Neurological: disorganized Internal Medicine Assmt/Plan - Assessment Assessment: Psychosis Hyperlipidemia HTN BPH DM - Plan Plan: Continue current managements Monitor VS Monitor Labs Psych management per Psych Pain managment as needed. Monitor nutritional needs. Fall Precaution Continue collaboration with interdisciplinary team. Nutritional Asmnt/Malnutr-PDOC - Dietary Evaluation Malnutrition Findings (Please click <Entered> for more info): Nutritional Asmnt/Malnutrition Start: 09/18/19 10: 39 Text: Status: Complete Freq: Protocol: Document 09/18/19 10:39 MMPETRA (Rec: 09/18/19 10:47 MMULHERN SALINAS- FNS1) Nutritional Asmnt/Malnutrition Patient General Information Nutritional Screening Moderate Risk Diagnosis Psychosis Pertinent Medical Hx/Surgical Hx Psychosis, dementia, HTN, BPH, diabetes, hyperlipidemia, glaucoma. Subjective Information Patient was admitted from [facility] due to verbal and physical aggression . Tolerating current diet order with adequate intake. Current Diet Order/ Nutrition Support mechanical soft, 60gm CCHO, no added sodium Patient / S.O Not Indicated Pertinent Medications Maalox, Lipitor, Dulcolax, Vitamin D, MOM, Metformin, Fleet enema Nutritional Hx/Data Height 5 ft 2 in Height (Calculated Centimeters) 157.5 Current Weight (lbs) 176 lb Weight (Calculated Kilograms) 79.8 Weight (Calculated Grams) 92891.3 [place] Body Weight 118 % [place] Body Weight 149 Body Mass Index (BMI) 32.1 Recent Weight Change No Weight Status Obese GI Symptoms GI Symptoms None Last BM 3/6 x 2 Difficult in: None Food Allergies No Cultural/Ethnic/Episcopal Belief none indicated Usual diet at home unknown Skin Integrity/Comment: Dillon 18, Dryness Current %PO Good (75-100%) Estimated Nutritional Goals BEE in Kcals: Adj wt of IBW Calories/Kcals/Kg 60.2kg ADj BW 27-32 kcal/kg Kcals Calculated ~2694-1052 kcal/day Protein: Adj wt of IBW Protein g/k-1.2 gm/kg Protein Calculated ~60-70gm/day Fluid: ml ~6366-2121 ml/day (1 ml/kcal) Nutritional Problem No current Nutrition Prob Problem No nutrition diagnosis at this time Intervention/Recommendation Comments 1. Continue current diet as tolerated by patient. Expected Outcomes/Goals Expected Outcomes/Goals Adequate nutrition to meet >75 % estimated needs, improved labs, skin remains intact, weight maintenance or trend toward ideal body weight. F/U LR 09/24-
--- NOTE | 2019-09-21 18:31 | Progress Notes ---
DATE: 09/21/2019 PSYCHIATRIC PROGRESS NOTE SUBJECTIVE: Chart was reviewed and the patient interviewed. Also discussed the patient's condition with the staff and reviewed records and labs. The patient is still withdrawn and is still refusing care and staying by himself in his room most of the time. The patient also is forgetful and he still needs lots of redirections. The patient is also refusing to take his medications except when his is present. He also gets angry and upset with my questions and when I asked him to get out of his room and to socialize and interact more. Otherwise, the patient is exhibiting no actual physical problems at this time, but still needs close monitoring. ASSESSMENT: The patient is still psychotic and agitated. TREATMENT PLAN: Continue to monitor his behavior closely. Also, we will change Seroquel to Risperdal and hopefully the patient will take Risperdal liquid. Also, we will continue to work on behavioral modification. JOB# [id number]
[2019-09-21] MEDS: Atorvastatin Calcium 10 MG TAB PO SCH (20:47)
--- NOTE | 2019-09-22 06:37 | Progress Notes ---
DATE: 09/22/2019 SUBJECTIVE: Chart was reviewed and the patient interviewed. Also discussed the patient's condition with the staff and reviewed records and labs. "Is it morning already." The patient is still confused and he is still isolative and withdrawn. Interacting minimally with peers and with others. The patient also is still selective in taking medications, although yesterday morning, he did take 1 dose of Namenda. He also still seems to be suspicious and paranoid, but decreased behavioral problems and decreased agitation. The patient still needs redirections. The patient's gait is steady. Also, personal hygiene seems to be improved. He is still slow to respond to questions, which might be because of his paranoia and fears. ASSESSMENT: The patient is still psychotic and still needs redirections and close monitoring. TREATMENT PLAN: I started the patient on Risperdal yesterday, but the first dose will be given today and I stop his Seroquel. At the same time, we will continue monitoring behavior closely and we will continue to follow up. JOB# [id number]
[2019-09-22] MEDS: Aspirin 81mg Chewable Tab PO SCH (08:51)
[2019-09-22] MEDS: risperiDONE 1 mg/mL 30 mL Bottle PO SCH ×2 (09:06→17:04)
--- NOTE | 2019-09-22 13:41 | Internal Medicine Prog Note ---
Internal Medicine Subjective - Subjective Service Date: 09/22/19 Patient is:: awake, verbal, agitated, confused Patient Complaints of:: other (Hx of diabetes.) Per staff patient has:: no adverse event, no episodes of fall Internal Medicine Objective - Results Recent Labs: Laboratory Last Values POC Glucose 98 MG/DL (70 - 105) 09/22/19 11:46 - Physical Exam Vitals and I&O: Vital Signs Temp 98.4 F 09/22/19 06:18 Pulse 57 09/22/19 11:54 Resp 18 09/22/19 08:00 BP 125/61 09/22/19 11:54 Pulse Ox 96 09/22/19 06:18 Intake & Output 09/21/19 09/22/19 09/22/19 18:59 06:59 18:59 Intake Total 1200 120 Balance 1200 120 Intake: Oral 1200 120 Other: # Voids 3 3 # Bowel Movements 0 0 Active Medications: Current Medications Acetaminophen (Tylenol) 650 mg PO Q4H PRN PRN Reason: Pain (Mild 1-3) Stop: 11/14/19 22:27 Acetaminophen (Tylenol) 650 mg PO Q4H PRN PRN Reason: Temperature above 101 Stop: 11/15/19 00:18 Acetaminophen (Tylenol Extra Strength) 1,000 mg PO Q8H PRN PRN Reason: MODERATE PAIN (4-6) Stop: 11/15/19 00:18 Al Hydrox/Mg Hydrox/Simethicone (Maalox) 30 ml PO Q4HR PRN PRN Reason: GI DISTRESS Stop: 11/14/19 22:27 Aspirin (Aspirin Chewable) 81 mg PO DAILY [facility] Stop: 11/15/19 08:59 Last Admin: 09/22/19 08:51 Dose: 81 mg Atorvastatin Calcium (Lipitor) 20 mg PO HS [facility] Stop: 11/15/19 20:59 Last Admin: 09/21/19 20:47 Dose: 20 mg Bisacodyl (Dulcolax 10 Mg Supp) 10 mg RC DAILY PRN PRN Reason: no bm for 3 days if mom ineffe Stop: 11/15/19 00:18 Brimonidine Tartrate (Alphagan 0.2% Ophth Soln) 1 drop EACH EYE BID [facility] Stop: 11/15/19 08:59 Last Admin: 09/22/19 08:48 Dose: 1 drop Cholecalciferol (Vitamin D3) 5,000 iu PO DAILY [facility] Stop: 11/15/19 08:59 Last Admin: 09/22/19 08:46 Dose: 5,000 iu Donepezil HCl (Aricept) 10 mg PO HS [facility] Stop: 11/15/19 20:59 Last Admin: 09/21/19 20:48 Dose: 10 mg Dorzolamide/Timolol (Cosopt Ophth Soln) 1 drop EACH EYE BID [facility] Stop: 11/15/19 08:59 Last Admin: 09/22/19 08:48 Dose: 1 drop Doxazosin Mesylate (Cardura) 2 mg PO DAILY [facility] Stop: 11/15/19 08:59 Last Admin: 09/22/19 08:45 Dose: 2 mg Glimepiride (Amaryl) 1 mg PO DAILY [facility] Stop: 11/15/19 08:59 Last Admin: 09/22/19 08:46 Dose: 1 mg Lisinopril (Zestril) 5 mg PO DAILY [facility] Stop: 11/15/19 08:59 Last Admin: 09/22/19 11:54 Dose: Not Given Lorazepam (Ativan) 0.5 mg PO Q4HR PRN; Protocol PRN Reason: Anxiety Stop: 10/15/19 22:27 Magnesium Hydroxide (Milk Of Magnesia) 30 ml PO HS PRN PRN Reason: Constipation Memantine (Namenda) 5 mg PO BID [facility] Stop: 11/15/19 16:59 Last Admin: 09/22/19 08:45 Dose: 5 mg Metformin HCl (Glucophage) 1,000 mg PO BID [facility] Stop: 11/15/19 08:59 Last Admin: 09/22/19 11:55 Dose: Not Given Pioglitazone HCl (Actos) 15 mg PO DAILY [facility] Stop: 11/15/19 08:59 Last Admin: 09/22/19 08:46 Dose: 15 mg Risperidone (Risperdal) 1 mg PO BID [facility]; Protocol Stop: 11/20/19 16:59 Last Admin: 09/22/19 09:06 Dose: Not Given Sodium Phosphate (Fleet Enema) 133 ml RC PRN PRN PRN Reason: no bm 3 days dulcolax ineffect Stop: 11/15/19 00:25 Tamsulosin HCl (Flomax) 0.4 mg PO HS [facility] Stop: 11/15/19 20:59 Last Admin: 09/21/19 20:48 Dose: 0.4 mg Zolpidem Tartrate (Ambien) 5 mg PO HS PRN PRN Reason: Insomnia Stop: 11/14/19 22:27 General: demented, NAD, other (does not answer questions appropriately) HEENT: NC/AT, PERRLA Neck: Supple, No JVD Lungs: CTAB Cardiovascular: RRR, Normal S1, Normal S2 Abdomen: soft, non-tender Extremities: clear Neurological: disorganized Internal Medicine Assmt/Plan - Assessment Assessment: Psychosis Hyperlipidemia HTN BPH DM - Plan Plan: Continue current managements Monitor VS Monitor Labs Psych management per Psych Pain managment as needed. Monitor nutritional needs. Fall Precaution Continue collaboration with interdisciplinary team. Nutritional Asmnt/Malnutr-PDOC - Dietary Evaluation Malnutrition Findings (Please click <Entered> for more info): Nutritional Asmnt/Malnutrition Start: 09/18/19 10: 39 Text: Status: Complete Freq: Protocol: Document 09/18/19 10:39 MMULCAN (Rec: 09/18/19 10:47 MMULHERN SALINAS- FNS1) Nutritional Asmnt/Malnutrition Patient General Information Nutritional Screening Moderate Risk Diagnosis Psychosis Pertinent Medical Hx/Surgical Hx Psychosis, dementia, HTN, BPH, diabetes, hyperlipidemia, glaucoma. Subjective Information Patient was admitted from [facility] due to verbal and physical aggression . Tolerating current diet order with adequate intake. Current Diet Order/ Nutrition Support mechanical soft, 60gm CCHO, no added sodium Patient / S.O Not Indicated Pertinent Medications Maalox, Lipitor, Dulcolax, Vitamin D, MOM, Metformin, Fleet enema Nutritional Hx/Data Height 5 ft 2 in Height (Calculated Centimeters) 157.5 Current Weight (lbs) 176 lb Weight (Calculated Kilograms) 79.8 Weight (Calculated Grams) 00608.3 [place] Body Weight 118 % [place] Body Weight 149 Body Mass Index (BMI) 32.1 Recent Weight Change No Weight Status Obese GI Symptoms GI Symptoms None Last BM 3/6 x 2 Difficult in: None Food Allergies No Cultural/Ethnic/Jewish Belief none indicated Usual diet at home unknown Skin Integrity/Comment: Dillon 18, Dryness Current %PO Good (75-100%) Estimated Nutritional Goals BEE in Kcals: Adj wt of IBW Calories/Kcals/Kg 60.2kg ADj BW 27-32 kcal/kg Kcals Calculated ~5583-9312 kcal/day Protein: Adj wt of IBW Protein g/k-1.2 gm/kg Protein Calculated ~60-70gm/day Fluid: ml ~0363-5256 ml/day (1 ml/kcal) Nutritional Problem No current Nutrition Prob Problem No nutrition diagnosis at this time Intervention/Recommendation Comments 1. Continue current diet as tolerated by patient. Expected Outcomes/Goals Expected Outcomes/Goals Adequate nutrition to meet >75 % estimated needs, improved labs, skin remains intact, weight maintenance or trend toward ideal body weight. F/U LR 09/24-
[2019-09-22] MEDS ORDERED: GLUCAGON HCl 1 MG KIT IM PRN (15:14)
[2019-09-22] MEDS: INSULIN LISPRO SLIDING SCALE 100 UNITS/ML UNIT SUBQ SCH (16:46)
[2019-09-22] MEDS: Atorvastatin Calcium 10 MG TAB PO SCH (20:14)
[2019-09-23] MEDS: INSULIN LISPRO SLIDING SCALE 100 UNITS/ML UNIT SUBQ SCH ×3 (06:36→17:06)
--- NOTE | 2019-09-23 06:39 | Progress Notes ---
DATE: 09/23/2019 PSYCHIATRIC PROGRESS NOTE SUBJECTIVE: Chart was reviewed and the patient interviewed. Also discussed the patient's condition with the staff, and reviewed records and labs. The patient is still selectively mute, and he is still guarded and withdrawn. The patient also is forgetful and slightly confused and unable to answer questions coherently. The patient also is having episodes of agitation. Also, during his answers, he always referred things to "my ." He says that his does everything for him. Otherwise, the patient continued to comply with taking his medications with no side effects. ASSESSMENT: The patient is still psychotic and agitated, and also needs close monitoring because of his confusion and forgetfulness. TREATMENT PLAN: Continue monitoring his behavior and his condition closely. Also, continue to work on adjusting his medications and behavioral modification. JOB# [id number]
[2019-09-23] MEDS: Aspirin 81mg Chewable Tab PO SCH (08:10)
[2019-09-23] MEDS: risperiDONE 1 mg/mL 30 mL Bottle PO SCH ×3 (08:28→17:33)
[2019-09-23] MEDS: Atorvastatin Calcium 10 MG TAB PO SCH (21:27)
[2019-09-24] MEDS: INSULIN LISPRO SLIDING SCALE 100 UNITS/ML UNIT SUBQ SCH ×3 (06:31→17:12)
[2019-09-24] MEDS: Aspirin 81mg Chewable Tab PO SCH (09:15)
[2019-09-24] MEDS: risperiDONE 1 mg/mL 30 mL Bottle PO SCH ×2 (09:17→17:13)
--- NOTE | 2019-09-24 10:42 | Discharge Summary ---
DATE OF DISCHARGE: 09/24/2019 AGE: 78 years. SEX: Male. PHYSICIAN: Dr. Cool. FINAL PRIMARY DIAGNOSIS: Dementia, moderate, with psychotic features and behavioral disturbances. REASON FOR HOSPITALIZATION: The patient was admitted to the hospital from [facility] because of verbal and physical aggression with the staff and staff was not able to handle him. HOSPITAL COURSE: The patient continued to be anxious. The patient also was guarded and withdrawn. The patient was started on Aricept 10 mg at bedtime and also the patient was given Namenda and the dose adjusted to 5 mg twice a day. Also, Risperdal dose was increased to 1 mg twice a day. Gradually, the patient's affect was brighter. The patient was not agitated or irritable. The patient was accepted back to [facility] Physical examination was basically within normal and the patient had no major medical problems while in the hospital. Dr. Márquez continued to monitor his medications closely. The patient's blood work also was monitored closely by Dr. Márquez. The patient has a history of hyperlipidemia, diabetes mellitus and hypertension and benign prostatic hypertrophy. AFTER DISCHARGE PLANS: The patient discharged from the hospital back to [facility] with plans to continue his treatment as an outpatient. EXPECTED OUTCOME AFTER DISCHARGE: Fair if the patient continued to take his psychotropic medications and follow up with discharge plans. [facility]# [id number]
--- NOTE | 2019-09-24 14:12 | Internal Medicine Prog Note ---
Internal Medicine Subjective - Subjective Service Date: 09/24/19 Patient seen and examined:: with staff Patient is:: awake, verbal, agitated, confused Patient Complaints of:: other (Hx of diabetes.) Per staff patient has:: no adverse event, no episodes of fall Internal Medicine Objective - Results Recent Labs: Laboratory Last Values POC Glucose 78 MG/DL (70 - 105) 09/24/19 11:27 - Physical Exam Vitals and I&O: Vital Signs Temp 98.2 F 09/24/19 06:12 Pulse 68 09/24/19 09:16 Resp 17 09/24/19 08:00 BP 100/62 09/24/19 09:16 Pulse Ox 96 09/24/19 06:12 Intake & Output 09/23/19 09/24/19 09/24/19 18:59 06:59 18:59 Intake Total 240 Balance 240 Intake: Oral 240 Other: # Voids 2 # Bowel Movements 0 Active Medications: Current Medications Acetaminophen (Tylenol) 650 mg PO Q4H PRN PRN Reason: Pain (Mild 1-3) Stop: 11/14/19 22:27 Acetaminophen (Tylenol) 650 mg PO Q4H PRN PRN Reason: Temperature above 101 Stop: 11/15/19 00:18 Acetaminophen (Tylenol Extra Strength) 1,000 mg PO Q8H PRN PRN Reason: MODERATE PAIN (4-6) Stop: 11/15/19 00:18 Al Hydrox/Mg Hydrox/Simethicone (Maalox) 30 ml PO Q4HR PRN PRN Reason: GI DISTRESS Stop: 11/14/19 22:27 Aspirin (Aspirin Chewable) 81 mg PO DAILY [facility] Stop: 11/15/19 08:59 Last Admin: 09/24/19 09:15 Dose: 81 mg Atorvastatin Calcium (Lipitor) 20 mg PO HS [facility] Stop: 11/15/19 20:59 Last Admin: 09/23/19 21:27 Dose: Not Given Bisacodyl (Dulcolax 10 Mg Supp) 10 mg RC DAILY PRN PRN Reason: no bm for 3 days if mom ineffe Stop: 11/15/19 00:18 Brimonidine Tartrate (Alphagan 0.2% Ophth Soln) 1 drop EACH EYE BID [facility] Stop: 11/15/19 08:59 Last Admin: 09/24/19 09:17 Dose: Not Given Cholecalciferol (Vitamin D3) 5,000 iu PO DAILY [facility] Stop: 11/15/19 08:59 Last Admin: 09/24/19 09:13 Dose: 5,000 iu Dextrose (Glutose 40%) 18.75 gm PO PRN PRN PRN Reason: BS Below 70 if tolerate po Stop: 11/21/19 15:13 Donepezil HCl (Aricept) 10 mg PO HS [facility] Stop: 11/15/19 20:59 Last Admin: 09/23/19 21:28 Dose: Not Given Dorzolamide/Timolol (Cosopt Ophth Soln) 1 drop EACH EYE BID [facility] Stop: 11/15/19 08:59 Last Admin: 09/24/19 09:17 Dose: Not Given Doxazosin Mesylate (Cardura) 2 mg PO DAILY [facility] Stop: 11/15/19 08:59 Last Admin: 09/24/19 09:15 Dose: 2 mg Glimepiride (Amaryl) 1 mg PO DAILY [facility] Stop: 11/15/19 08:59 Last Admin: 09/24/19 09:15 Dose: 1 mg Glucagon (Glucagen) 1 mg IM PRN PRN PRN Reason: BS Below 70 if not tolerate po Stop: 11/21/19 15:13 Insulin Human Lispro (Humalog Insulin Sliding Scale) 0 units SUBQ AC [facility]; Protocol Stop: 11/21/19 16:29 Last Admin: 09/24/19 11:29 Dose: Not Given Lisinopril (Zestril) 5 mg PO DAILY [facility] Stop: 11/15/19 08:59 Last Admin: 09/24/19 09:16 Dose: Not Given Magnesium Hydroxide (Milk Of Magnesia) 30 ml PO HS PRN PRN Reason: Constipation Memantine (Namenda) 5 mg PO BID [facility] Stop: 11/15/19 16:59 Last Admin: 09/24/19 09:15 Dose: 5 mg Metformin HCl (Glucophage) 1,000 mg PO BID [facility] Stop: 11/15/19 08:59 Last Admin: 09/24/19 09:14 Dose: 1,000 mg Pioglitazone HCl (Actos) 15 mg PO DAILY [facility] Stop: 11/15/19 08:59 Last Admin: 09/24/19 09:15 Dose: 15 mg Risperidone (Risperdal) 1 mg PO BID [facility]; Protocol Stop: 11/20/19 16:59 Last Admin: 09/24/19 09:17 Dose: Not Given Sodium Phosphate (Fleet Enema) 133 ml RC PRN PRN PRN Reason: no bm 3 days dulcolax ineffect Stop: 11/15/19 00:25 Tamsulosin HCl (Flomax) 0.4 mg PO HS [facility] Stop: 11/15/19 20:59 Last Admin: 09/23/19 21:28 Dose: Not Given General: demented, NAD, other (does not answer questions appropriately) HEENT: NC/AT, PERRLA Neck: Supple, No JVD Lungs: CTAB Cardiovascular: RRR, Normal S1, Normal S2 Abdomen: soft, non-tender Extremities: clear Neurological: disorganized Internal Medicine Assmt/Plan - Assessment Assessment: Psychosis Hyperlipidemia HTN BPH DM - Plan Plan: Continue current managements Monitor VS Monitor Labs Psych management per Psych Pain managment as needed. Monitor nutritional needs. Fall Precaution Continue collaboration with interdisciplinary team. Nutritional Asmnt/Malnutr-PDOC - Dietary Evaluation Malnutrition Findings (Please click <Entered> for more info): Nutritional Asmnt/Malnutrition Start: 09/18/19 10: 39 Text: Status: Complete Freq: Protocol: Document 09/18/19 10:39 VALARIE (Rec: 09/18/19 10:47 [email or web address]- [email or web address]) Nutritional Asmnt/Malnutrition Patient General Information Nutritional Screening Moderate Risk Diagnosis Psychosis Pertinent Medical Hx/Surgical Hx Psychosis, dementia, HTN, BPH, diabetes, hyperlipidemia, glaucoma. Subjective Information Patient was admitted from [facility] due to verbal and physical aggression . Tolerating current diet order with adequate intake. Current Diet Order/ Nutrition Support mechanical soft, 60gm CCHO, no added sodium Patient / S.O Not Indicated Pertinent Medications Maalox, Lipitor, Dulcolax, Vitamin D, MOM, Metformin, Fleet enema Nutritional Hx/Data Height 5 ft 2 in Height (Calculated Centimeters) 157.5 Current Weight (lbs) 176 lb Weight (Calculated Kilograms) 79.8 Weight (Calculated Grams) 12686.3 [place] Body Weight 118 % [place] Body Weight 149 Body Mass Index (BMI) 32.1 Recent Weight Change No Weight Status Obese GI Symptoms GI Symptoms None Last BM 3/6 x 2 Difficult in: None Food Allergies No Cultural/Ethnic/Protestant Belief none indicated Usual diet at home unknown Skin Integrity/Comment: Dillon 18, Dryness Current %PO Good (75-100%) Estimated Nutritional Goals BEE in Kcals: Adj wt of IBW Calories/Kcals/Kg 60.2kg ADj BW 27-32 kcal/kg Kcals Calculated ~4595-9083 kcal/day Protein: Adj wt of IBW Protein g/k-1.2 gm/kg Protein Calculated ~60-70gm/day Fluid: ml ~8271-9293 ml/day (1 ml/kcal) Nutritional Problem No current Nutrition Prob Problem No nutrition diagnosis at this time Intervention/Recommendation Comments 1. Continue current diet as tolerated by patient. Expected Outcomes/Goals Expected Outcomes/Goals Adequate nutrition to meet >75 % estimated needs, improved labs, skin remains intact, weight maintenance or trend toward ideal body weight. F/U LR 09/24-
[2019-09-24] MEDS: Atorvastatin Calcium 10 MG TAB PO SCH (21:00)
[2019-09-25] MEDS: INSULIN LISPRO SLIDING SCALE 100 UNITS/ML UNIT SUBQ SCH ×3 (06:39→16:57)
--- NOTE | 2019-09-25 07:19 | Progress Notes ---
DATE: 09/25/2019 The patient in the hospital, mostly keeps to self, withdrawn. I am not really able to have much of a conversation with him. Refers to things that is "," just says , ongoing behavioral disturbances, although he seems to be calmer, seems to per staff be approaching his baseline. Poor orientation, forgetful, Serbian speaking, easily irritable, but redirectable. The time was spent attempting to speak with the patient, although minimal given his current mentation. I did review the nursing notes. Medications were reviewed. Vitals were reviewed, labs were reviewed. JOB# [id number]
--- NOTE | 2019-09-25 07:25 | Progress Notes ---
DATE: 09/25/2019 SUBJECTIVE: The patient was seen in his room. The patient is asleep, but easily arousable. Still a poor historian. Appears to easily get frustrated and anxious. Poor impulse control, needs a lot of redirection. Otherwise, the patient appears to be in no acute distress. OBJECTIVE: VITAL SIGNS: Temperature 98.1, heart rate 63, blood pressure 122/61, respirations 20, 97% on room air. HEENT: Head is atraumatic, normocephalic. Eyes: Bilateral conjunctivae are clear. Bilateral pupils equal, round, reactive. NECK: Supple. No JVD. CARDIOVASCULAR: S1 and S2 without murmur. PULMONARY: Clear to auscultation. GASTROINTESTINAL: Soft and nontender without guarding. Positive bowel sounds. MUSCULOSKELETAL: No clubbing. No cyanosis noted. ASSESSMENT: 1. Psychosis. 2. Hypertension. 3. Hyperlipidemia. 4. Diabetes. 5. Benign prostatic hypertrophy. PLAN: We will keep the patient to Inpatient Psychiatric Unit. We will follow up with a psychiatrist to monitor the patient's condition and behavior. We will put the patient on fall precautions. Treatment plans were discussed with the patient's nurse. Treatment plans were discussed with Dr. Márquez. JOB# [id number]
[2019-09-25] MEDS: Aspirin 81mg Chewable Tab PO SCH (09:30)
[2019-09-25] MEDS: risperiDONE 1 mg/mL 30 mL Bottle PO SCH ×2 (09:30→16:42)
[2019-09-25] MEDS: Atorvastatin Calcium 10 MG TAB PO SCH (21:03)
[2019-09-26] MEDS: INSULIN LISPRO SLIDING SCALE 100 UNITS/ML UNIT SUBQ SCH ×3 (06:45→16:48)
[2019-09-26] MEDS: Aspirin 81mg Chewable Tab PO SCH (08:04)
[2019-09-26] MEDS: risperiDONE 1 mg/mL 30 mL Bottle PO SCH ×3 (12:03→16:48)
--- NOTE | 2019-09-26 15:03 | Internal Medicine Prog Note ---
Internal Medicine Subjective - Subjective Patient is:: awake, verbal, agitated, confused Patient Complaints of:: other (Hx of diabetes.) Per staff patient has:: no adverse event, no episodes of fall Internal Medicine Objective - Results Recent Labs: Laboratory Last Values POC Glucose 104 MG/DL (70 - 105) 09/25/19 11:19 - Physical Exam Vitals and I&O: Vital Signs Temp 98.9 F 09/26/19 06:21 Pulse 65 09/26/19 08:02 Resp 17 09/26/19 08:00 BP 130/51 09/26/19 08:02 Pulse Ox 96 09/26/19 06:21 Intake & Output 09/25/19 09/26/19 09/26/19 18:59 06:59 18:59 Intake Total 1200 280 Balance 1200 280 Intake: Oral 1200 280 Other: # Voids 2 # Bowel Movements 1 0 Active Medications: Current Medications Acetaminophen (Tylenol) 650 mg PO Q4H PRN PRN Reason: Pain (Mild 1-3) Stop: 11/14/19 22:27 Acetaminophen (Tylenol) 650 mg PO Q4H PRN PRN Reason: Temperature above 101 Stop: 11/15/19 00:18 Acetaminophen (Tylenol Extra Strength) 1,000 mg PO Q8H PRN PRN Reason: MODERATE PAIN (4-6) Stop: 11/15/19 00:18 Al Hydrox/Mg Hydrox/Simethicone (Maalox) 30 ml PO Q4HR PRN PRN Reason: GI DISTRESS Stop: 11/14/19 22:27 Aspirin (Aspirin Chewable) 81 mg PO DAILY [facility] Stop: 11/15/19 08:59 Last Admin: 09/26/19 08:04 Dose: 81 mg Atorvastatin Calcium (Lipitor) 20 mg PO HS [facility] Stop: 11/15/19 20:59 Last Admin: 09/25/19 21:03 Dose: Not Given Bisacodyl (Dulcolax 10 Mg Supp) 10 mg RC DAILY PRN PRN Reason: no bm for 3 days if mom ineffe Stop: 11/15/19 00:18 Brimonidine Tartrate (Alphagan 0.2% Ophth Soln) 1 drop EACH EYE BID [facility] Stop: 11/15/19 08:59 Last Admin: 09/26/19 08:10 Dose: Not Given Cholecalciferol (Vitamin D3) 5,000 iu PO DAILY [facility] Stop: 11/15/19 08:59 Last Admin: 09/26/19 08:03 Dose: 5,000 iu Dextrose (Glutose 40%) 18.75 gm PO PRN PRN PRN Reason: BS Below 70 if tolerate po Stop: 11/21/19 15:13 Donepezil HCl (Aricept) 10 mg PO HS [facility] Stop: 11/15/19 20:59 Last Admin: 09/25/19 21:03 Dose: Not Given Dorzolamide/Timolol (Cosopt Ophth Soln) 1 drop EACH EYE BID [facility] Stop: 11/15/19 08:59 Last Admin: 09/26/19 08:13 Dose: Not Given Doxazosin Mesylate (Cardura) 2 mg PO DAILY [facility] Stop: 11/15/19 08:59 Last Admin: 09/26/19 08:02 Dose: 2 mg Glimepiride (Amaryl) 1 mg PO DAILY [facility] Stop: 11/15/19 08:59 Last Admin: 09/26/19 08:03 Dose: 1 mg Glucagon (Glucagen) 1 mg IM PRN PRN PRN Reason: BS Below 70 if not tolerate po Stop: 11/21/19 15:13 Insulin Human Lispro (Humalog Insulin Sliding Scale) 0 units SUBQ AC [facility]; Protocol Stop: 11/21/19 16:29 Last Admin: 09/26/19 12:05 Dose: Not Given Lisinopril (Zestril) 5 mg PO DAILY [facility] Stop: 11/15/19 08:59 Last Admin: 09/26/19 08:02 Dose: 5 mg Magnesium Hydroxide (Milk Of Magnesia) 30 ml PO HS PRN PRN Reason: Constipation Memantine (Namenda) 5 mg PO BID [facility] Stop: 11/15/19 16:59 Last Admin: 09/26/19 08:04 Dose: 5 mg Metformin HCl (Glucophage) 1,000 mg PO BID [facility] Stop: 11/15/19 08:59 Last Admin: 09/26/19 08:01 Dose: 1,000 mg Pioglitazone HCl (Actos) 15 mg PO DAILY [facility] Stop: 11/15/19 08:59 Last Admin: 09/26/19 08:02 Dose: 15 mg Risperidone (Risperdal) 1 mg PO BID [facility]; Protocol Stop: 11/20/19 16:59 Last Admin: 09/26/19 12:04 Dose: 1 mg Sodium Phosphate (Fleet Enema) 133 ml RC PRN PRN PRN Reason: no bm 3 days dulcolax ineffect Stop: 11/15/19 00:25 Tamsulosin HCl (Flomax) 0.4 mg PO HS [facility] Stop: 11/15/19 20:59 Last Admin: 09/25/19 21:04 Dose: Not Given General: demented, NAD, other (does not answer questions appropriately) HEENT: NC/AT, PERRLA Neck: Supple, No JVD Lungs: CTAB Cardiovascular: RRR, Normal S1, Normal S2 Abdomen: soft, non-tender Extremities: clear Neurological: disorganized Internal Medicine Assmt/Plan - Assessment Assessment: Psychosis Hyperlipidemia HTN BPH DM - Plan Plan: Continue current managements Monitor VS Monitor Labs Psych management per Psych Pain managment as needed. Monitor nutritional needs. Fall Precaution Continue collaboration with interdisciplinary team. Nutritional Asmnt/Malnutr-PDOC - Dietary Evaluation Malnutrition Findings (Please click <Entered> for more info): Nutritional Asmnt/Malnutrition Start: 09/18/19 10: 39 Text: Status: Complete Freq: Protocol: Document 09/18/19 10:39 VALARIE (Rec: 09/18/19 10:47 [email or web address] NIÑO- [email or web address]) Nutritional Asmnt/Malnutrition Patient General Information Nutritional Screening Moderate Risk Diagnosis Psychosis Pertinent Medical Hx/Surgical Hx Psychosis, dementia, HTN, BPH, diabetes, hyperlipidemia, glaucoma. Subjective Information Patient was admitted from [facility] due to verbal and physical aggression . Tolerating current diet order with adequate intake. Current Diet Order/ Nutrition Support mechanical soft, 60gm CCHO, no added sodium Patient / S.O Not Indicated Pertinent Medications Maalox, Lipitor, Dulcolax, Vitamin D, MOM, Metformin, Fleet enema Nutritional Hx/Data Height 5 ft 2 in Height (Calculated Centimeters) 157.5 Current Weight (lbs) 176 lb Weight (Calculated Kilograms) 79.8 Weight (Calculated Grams) 93221.3 [place] Body Weight 118 % [place] Body Weight 149 Body Mass Index (BMI) 32.1 Recent Weight Change No Weight Status Obese GI Symptoms GI Symptoms None Last BM 3/6 x 2 Difficult in: None Food Allergies No Cultural/Ethnic/Christian Belief none indicated Usual diet at home unknown Skin Integrity/Comment: [place] 18, Dryness Current %PO Good (75-100%) Estimated Nutritional Goals BEE in Kcals: Adj wt of IBW Calories/Kcals/Kg 60.2kg ADj BW 27-32 kcal/kg Kcals Calculated ~9059-7901 kcal/day Protein: Adj wt of IBW Protein g/k-1.2 gm/kg Protein Calculated ~60-70gm/day Fluid: ml ~7156-6305 ml/day (1 ml/kcal) Nutritional Problem No current Nutrition Prob Problem No nutrition diagnosis at this time Intervention/Recommendation Comments 1. Continue current diet as tolerated by patient. Expected Outcomes/Goals Expected Outcomes/Goals Adequate nutrition to meet >75 % estimated needs, improved labs, skin remains intact, weight maintenance or trend toward ideal body weight. F/U LR 09/24-
[2019-09-26] MEDS: Atorvastatin Calcium 10 MG TAB PO SCH (20:17)
--- NOTE | 2019-09-26 23:36 | Progress Notes ---
DATE: 09/26/2019 SUBJECTIVE: The patient was interviewed. Case was discussed with staff. Chart and records were reviewed. Per the staff, the patient is easily agitated and irritable, unpredictable, withdrawn and guarded. The patient has been isolating himself to the room. The patient was interviewed this morning at bedside. The patient is somewhat irritable and also appears to be disorganized, not willing to cooperate much with the interview. The patient had his full tray of lunch at him at bedside and reports "later," appears to have poor appetite as well, not willing to discuss very much and quickly goes back to sleep. MENTAL STATUS EXAMINATION: The patient is an elderly male lying in the hospital bed. Limited cooperation. Speech is soft. Mood and affect appear to be depressed and constricted. Thought process is concrete. Unable to assess for any suicidal or homicidal thoughts, hallucinations or paranoia due to his poor participation. Alert and oriented x 1. Insight, judgment and impulse control appear to be poor at this time. ASSESSMENT AND PLAN: We will continue the patient's acute hospitalization. We will continue medications as prescribed. We will encourage the patient to verbalize his needs and participate in group and milieu therapy. JOB# [id number]
--- NOTE | 2019-09-27 07:32 | Discharge Summary ---
DATE OF DISCHARGE: 09/27/2019 AGE: 78. SEX: Male. PHYSICIAN: Dr. Cool. PRIMARY DIAGNOSIS: Dementia, moderate, with psychotic features and behavioral disturbances. REASON FOR HOSPITALIZATION AND MENTAL STATUS EXAM AND HOSPITAL COURSE: Please refer to the dictation that was done on 09/24/2019 and job number is [id number]. The patient was supposed to be discharged on 09/24/2019, but for unknown reason, his discharge did not happen and we will discharge the patient today. No changes in mental status exam from to today. JOB# [id number]
[2019-09-27] MEDS: Aspirin 81mg Chewable Tab PO SCH (08:47)
[2019-09-27] MEDS: risperiDONE 1 mg/mL 30 mL Bottle PO SCH ×2 (08:49→16:33)
[2019-09-27] MEDS: INSULIN LISPRO SLIDING SCALE 100 UNITS/ML UNIT SUBQ SCH (11:40)
[2019-09-27] MEDS: Atorvastatin Calcium 10 MG TAB PO SCH (20:57)
[2019-09-28] MEDS ORDERED: INSULIN LISPRO SLIDING SCALE 100 UNITS/ML UNIT SUBQ SCH (07:30)
[2019-09-28] MEDS: Aspirin 81mg Chewable Tab PO SCH (08:42)
[2019-09-28] MEDS: risperiDONE 1 mg/mL 30 mL Bottle PO SCH (08:44)
--- NOTE | 2019-09-28 18:31 | Discharge Summary ---
DATE OF DISCHARGE: 09/28/2019 SEX: Male. PHYSICIAN: Dr. Cool. FINAL DIAGNOSIS: Dementia, severe, with psychotic features. SECONDARY DIAGNOSIS: Depressive mood disorder. REASON FOR HOSPITALIZATION AND HOSPITAL COURSE: Please refer to the dictation that was done on 09/23, but the patient did not discharge then and no change in mental status exam. The patient was discharged and accepted by [facility] and plan to follow him up there. JOB# [id number]
== END 2019-09-28 16:40 | DRG 884 ==
LOC: GERO 19:55
PROVIDERS: ADMIT Psychiatry & Neurology Psychiatry; ATTEND Psychiatry & Neurology Psychiatry
DX: F03.91 Unspecified dementia, unspecified severity, with behavioral disturbance (principal); F32.3 Major depressive disorder, single episode, severe with psychotic features; N40.0 Benign prostatic hyperplasia without lower urinary tract symptoms; I10 Essential (primary) hypertension; E78.5 Hyperlipidemia, unspecified; E11.9 Type 2 diabetes mellitus without complications; H40.9 Unspecified glaucoma; Z79.82 Long term (current) use of aspirin; Z79.899 Other long term (current) drug therapy; Z79.84 Long term (current) use of oral hypoglycemic drugs
CPT/HCPCS: 82948-90; 83036-90; Z7610